=== PATIENT | male | born 1930 | race Caucasian/White ===

== ENCOUNTER 2017-02-22 20:57 | Observation (INO) | payer MEDICARE, BC ==
[2017-02-22 21:43] LABS: BASOPHIL % 0.2 % (0.0-0.4); Eosinophil % 1.3 % (0.00-5.0); Granulocytes % 77.2 % (36.0-66.0); Lymphocytes % 12.8 % (24.0-44.0); Mean Cell Volume 98.7 fl (78-100); Mean Platelet Volume 9.9 fl (6-9.5); Monocytes % 8.5 % (0.0-12.0); Platelet Count 199 K/mm3 (150-450); Red Blood Count 3.77 M/mm3 (4.1-5.6); Red Cell Distribution Width 15.1 % (11.5-14.0); White Blood Count 8.5 K/mm3 (4.0-10.5)
--- NOTE | 2017-02-22 21:50 | ERPHSYRPT ---
- History of Present Illness Time Seen by Provider: 02/22/17 21:23 Source: patient, family ( and son) Patient Subjective Stated Complaint: Pt arrives from home with approx 15-20 min onset of generalized weakness and episode of diaphoresis. Pt sts that he just feels tired, like he wants to go to bed. Denies other complaints. Triage Nursing Assessment: Pt alert, oriented, answers questions appropriately. Skin pink, warm to touch, moist. Pt able to transfer self from wheelchair to bed. Resps non-labored. Physician History: CC: weakness Hx: 86 y/o patient of Dr Mendieta. He has felt off for 2 weeks. Today was doing ok. He went to eat [place] this evening. He got home and felt weak all over, was dripping in sweat and diaphoretic. No chest pain, headache, focal weakness, fever, chills. He was overwhelmingly tired. Family brought him to ER. He denies V/D. Normal urination. No abd pain. No chest pain. Son states he acts cantankerous when under stress and has even been kicked out of the eye doctor office. He had skin lesion removed this week from his chest and the incision has done well. Timing/Duration: today Severity: moderate Allergies/Adverse Reactions: No Known Drug Allergies Allergy (Verified 04/29/14 19:17) Home Medications: Amiodarone HCl [Pacerone] 200 mg PO DAILY 04/29/14 [History] Ascorbic Acid [Vitamin C] 250 mg PO BID 04/29/14 [History] Aspirin 81 mg PO DAILY 04/29/14 [History] Bupropion HCl 150 mg Sr [Wellbutrin SR 150 MG] 150 mg PO BID 04/29/14 [ History] Cyanocobalamin/Folic Acid [Vitamin G37-Ebwcb Acid Tablet] 1 tab PO DAILY [History] Diazepam 2 mg PO TID 04/29/14 [History] Diazepam 2 mg PO TIDPRN PRN 04/29/14 [History] Docusate Sodium 100 mg [Colace 100 MG] 100 mg PO BID 04/29/14 [History] Donepezil HCl 10 mg [Aricept 10 MG] 10 mg PO HS 04/29/14 [History] Fluticasone Propionate [Flonase NASAL] 1 spray NS DAILY 04/29/14 [History] Fluticasone/Salmeterol [Advair 250-50 Diskus] 1 puff IH BID 04/29/14 [History] Hydrocodone Bit/Acetaminophen [[place] 5-325 Tablet] 1 each PO Q4HPRN 04/29/14 [ History] Ipratropium/Albuterol Sulfate [Combivent Inhaler] 15 gm IH QID 04/29/14 [History ] Lorazepam 0.5 mg [Ativan 0.5 MG] 0.5 mg PO TID 04/29/14 [History] Memantine HCl [Namenda] 10 mg PO BID 04/29/14 [History] Multivitamin [Multi-Vitamin Daily] 1 each PO DAILY 04/29/14 [History] Omeprazole 20 MG [Prilosec 20 mg] 20 mg PO DAILY 04/29/14 [History] Polyethylene Glycol 3350 17 gm [Miralax Powder 17GM PACKET] 17 gm PO DAILY [History] Pravastatin Sodium [Pravachol] 20 mg PO HS 04/29/14 [History] Timolol Maleate 0.5% Eye [Timoptic 0.5% 5 ml Ophthalmic] 1 drops OP HS 08/08 [History] Ubidecar/Fish Oil/[place]-3/Dana [Coq-10 & Fish Oil Softgel] 1 each PO DAILY 04/29 [History] Venlafaxine HCl ER 75 mg [Effexor XR 75 MG] 75 mg PO DAILY 04/29/14 [ History] Hx Tetanus, Diphtheria Vaccination/Date Given: Yes Hx Influenza Vaccination/Date Given: Yes Hx Pneumococcal Vaccination/Date Given: No Immunizations Up to Date: Yes - Review of Systems Constitutional: Fatigue, Malaise, Weakness (general), No Fever, No Chills Eyes: No Symptoms Ears, Nose, & Throat: No Symptoms Respiratory: No Cough, No Dyspnea Cardiac: No Chest Pain, No Palpitations, No Syncope Abdominal/Gastrointestinal: No Abdominal Pain, No Nausea, No Vomiting, No Diarrhea Musculoskeletal: No Back Pain, No Neck Pain, No Fall, No Injury Skin: No Rash Neurological: No Focal Weakness, No Headache, No Parasthesia All Other Systems: Reviewed and Negative - Past Medical History Pertinent Past Medical History: Yes Neurological History: Dementia Cardiac History: Arrhythmia, Coronary Artery Disease, Myocardial Infarction ([place]) Respiratory History: COPD GI Medical History: Other - Past Surgical History Past Surgical History: Yes Other Surgical History: HERNIA REPAIR - Social History Smoking Status: Former smoker Exposure to second hand smoke: No Drug Use: none Patient Lives Alone: No (here with family) - Nursing Vital Signs Nursing Vital Signs: Initial Vital Signs Pulse Rate 63 02/22/17 21:13 Respiratory Rate 18 02/22/17 21:13 Blood Pressure 105/50 02/22/17 21:13 O2 Sat by Pulse Oximetry 95 02/22/17 21:13 Pain Scale Pain Intensity 0 - Physical Exam General Appearance: alert Eye Exam: PERRL/EOMI Ears, Nose, Throat Exam: normal ENT inspection, moist mucous membranes Neck Exam: normal inspection, non-tender, supple Respiratory Exam: normal breath sounds Cardiovascular Exam: regular rate/rhythm Gastrointestinal/Abdomen Exam: soft, No tenderness, No distention Male Genitalia Exam: normal genitalia Back Exam: normal inspection, normal range of motion Extremity Exam: normal inspection, normal range of motion Neurologic Exam: alert, oriented x 3, cooperative, services executive II-XII nml as tested, sensation nml, No motor deficits Skin Exam: warm, dry, No rash SpO2 Interpretation: normal SpO2: 95 Oxygen Delivery: Room Air - Course Nursing assessment & vital signs reviewed: Yes EKG Interpreted by Me: RATE (64), A-fib, NORMAL AXIS, NORMAL INTERVALS (QTc 450) , NORMAL ST-T - Radiology Exams cxr X-ray Interpretation: Reviewed by me (No mass, ?right effusion, emphysema) - CT Exams head CT Interpretation: Tele-radiologist Report (no acute, pronounced volume loss, chronic white matter disease. ), No/Intracranial Hemorrhag Ordered Tests: Active Orders 24 hr Category Date Time Status Accucheck STAT Care 02/22/17 23:27 Active Clean Catch Urine Specimen STAT Care 02/22/17 21:23 Active EKG-ER Only STAT Care 02/22/17 21:23 Active IV Insertion STAT Care 02/22/17 21:23 Active Rectal Temperature STAT Care 02/22/17 21:25 Active cath [Cath for Specimen-Straight] STAT Care 02/22/17 23:49 Active CHEST 1 VIEW (PORTABLE) Stat Exams 02/22/17 21:23 Taken HEAD WITHOUT CONTRAST [CT] Stat Exams 02/22/17 21:24 Taken CBC W DIFF Stat Lab 02/22/17 21:40 Completed CMP Stat Lab 02/22/17 21:40 Completed Lactic Acid Stat Lab 02/22/17 21:38 Completed PROTIME WITH INR Stat Lab 02/22/17 21:50 Completed PTT Stat Lab 02/22/17 21:50 Completed TROPONIN Q3H Lab 02/22/17 21:40 Completed TROPONIN Q3H Lab 02/23/17 00:30 Ordered TROPONIN Q3H Lab 02/23/17 03:30 Ordered TROPONIN Q3H Lab 02/23/17 06:30 Ordered TROPONIN Q3H Lab 02/23/17 09:30 Ordered TSH [TSH, 3RD Generation] Stat Lab 02/22/17 21:40 Completed UA W/RFX UR CULTURE Stat Lab 02/22/17 23:47 Completed Medication Summary Discontinued Medications Generic Name Dose Route Start Last Admin Trade Name Freq PRN Reason Stop Dose Admin Diphtheria/Tetanus/Acell Pertussis Confirm 02/22/17 22:26 Adacel Vial Administered 02/22/17 22:27 Dose 0.5 ml IM .STmobiTeris-MED ONE Lab/Rad Data: Laboratory Result Diagrams 02/22/17 21:40 02/22/17 21:40 Laboratory Results 02/22/17 02/22/17 02/22/17 Range/Units 23:47 21:50 21:40 WBC 8.5 (4.0-10.5) K/mm3 RBC 3.77 L (4.1-5.6) M/mm3 Hgb 11.7 L (12.5-18.0) gm/dl Hct 37.2 L (42-50) % MCV 98.7 (78-100) fl MCH 31.0 (26-32) pg MCHC 31.5 L (32-36) g/dl RDW 15.1 H (11.5-14.0) % Plt Count 199 (150-450) K/mm3 MPV 9.9 H (6-9.5) fl Gran % 77.2 H (36.0-66.0) % Lymphocytes % 12.8 L (24.0-44.0) % Monocytes % 8.5 (0.0-12.0) % Eosinophils % 1.3 (0.00-5.0) % Basophils % 0.2 (0.0-0.4) % Basophils # 0.02 (0-0.4) INR 0.99 (0.8-3.0) APTT 36.1 (24.1-36.1) SECONDS Sodium (136-145) mEq/L Potassium (3.5-5.1) mEq/L Chloride (98-107) mEq/L Carbon Dioxide (21-32) mEq/L Anion Gap (5-15) MEQ/L BUN (9-20) mg/dL Creatinine (0.55-1.30) mg/dl Estimated GFR ML/MIN Glucose (70-110) MG/DL Lactic Acid (0.4-2.0) Calcium (8.5-10.1) mg/dL Total Bilirubin (0.2-1.0) mg/dL AST (15-37) U/L ALT (12-78) U/L Alkaline Phosphatase (46-116) U/L Troponin I (0.000-0.056) ng/ml Serum Total Protein (6.4-8.2) gm/dL Albumin (3.4-5.0) g/dL TSH 3rd Generation (0.358-3.740) mIU/L Ur Collection Type CLEAN CATCH Urine Color YELLOW (YELLOW) Urine Appearance CLEAR (CLEAR) Urine pH 5.0 (5-6) Ur Specific [place] 1.020 (1.005-1.025) Urine Protein NEGATIVE (Negative) Urine Ketones NEGATIVE (NEGATIVE) Urine Blood NEGATIVE (0-5) Mario/ul Urine Nitrite NEGATIVE (NEGATIVE) Urine Bilirubin NEGATIVE (NEGATIVE) Urine Urobilinogen NORMAL (0-1) mg/dL Ur Leukocyte Esterase NEGATIVE (NEGATIVE) Urine Culture Reflexed NO (NO) Urine Glucose NEGATIVE (NEGATIVE) mg/dL Specimen Received [id number] 02/22/17 02/22/17 02/22/17 Range/Units 21:40 21:40 21:40 WBC (4.0-10.5) K/mm3 RBC (4.1-5.6) M/mm3 Hgb (12.5-18.0) gm/dl Hct (42-50) % MCV (78-100) fl MCH (26-32) pg MCHC (32-36) g/dl RDW (11.5-14.0) % Plt Count (150-450) K/mm3 MPV (6-9.5) fl Gran % (36.0-66.0) % Lymphocytes % (24.0-44.0) % Monocytes % (0.0-12.0) % Eosinophils % (0.00-5.0) % Basophils % (0.0-0.4) % Basophils # (0-0.4) INR (0.8-3.0) APTT (24.1-36.1) SECONDS Sodium 144 (136-145) mEq/L Potassium 4.1 (3.5-5.1) mEq/L Chloride 107 (98-107) mEq/L Carbon Dioxide 27.0 (21-32) mEq/L Anion Gap 14.0 (5-15) MEQ/L BUN 14 (9-20) mg/dL Creatinine 1.11 (0.55-1.30) mg/dl Estimated GFR > 60 ML/MIN Glucose 68 L (70-110) MG/DL Lactic Acid (0.4-2.0) Calcium 9.1 (8.5-10.1) mg/dL Total Bilirubin 0.30 (0.2-1.0) mg/dL AST 15 (15-37) U/L ALT 14 (12-78) U/L Alkaline Phosphatase 60 (46-116) U/L Troponin I < 0.017 (0.000-0.056) ng/ml Serum Total Protein 6.3 L (6.4-8.2) gm/dL Albumin 3.7 (3.4-5.0) g/dL TSH 3rd Generation 0.698 (0.358-3.740) mIU/L Ur Collection Type Urine Color (YELLOW) Urine Appearance (CLEAR) Urine pH (5-6) Ur Specific [place] (1.005-1.025) Urine Protein (Negative) Urine Ketones (NEGATIVE) Urine Blood (0-5) Mario/ul Urine Nitrite (NEGATIVE) Urine Bilirubin (NEGATIVE) Urine Urobilinogen (0-1) mg/dL Ur Leukocyte Esterase (NEGATIVE) Urine Culture Reflexed (NO) Urine Glucose (NEGATIVE) mg/dL Specimen Received 02/22/17 Range/Units 21:38 WBC (4.0-10.5) K/mm3 RBC (4.1-5.6) M/mm3 Hgb (12.5-18.0) gm/dl Hct (42-50) % MCV (78-100) fl MCH (26-32) pg MCHC (32-36) g/dl RDW (11.5-14.0) % Plt Count (150-450) K/mm3 MPV (6-9.5) fl Gran % (36.0-66.0) % Lymphocytes % (24.0-44.0) % Monocytes % (0.0-12.0) % Eosinophils % (0.00-5.0) % Basophils % (0.0-0.4) % Basophils # (0-0.4) INR (0.8-3.0) APTT (24.1-36.1) SECONDS Sodium (136-145) mEq/L Potassium (3.5-5.1) mEq/L Chloride (98-107) mEq/L Carbon Dioxide (21-32) mEq/L Anion Gap (5-15) MEQ/L BUN (9-20) mg/dL Creatinine (0.55-1.30) mg/dl Estimated GFR ML/MIN Glucose (70-110) MG/DL Lactic Acid 1.6 (0.4-2.0) Calcium (8.5-10.1) mg/dL Total Bilirubin (0.2-1.0) mg/dL AST (15-37) U/L ALT (12-78) U/L Alkaline Phosphatase (46-116) U/L Troponin I (0.000-0.056) ng/ml Serum Total Protein (6.4-8.2) gm/dL Albumin (3.4-5.0) g/dL TSH 3rd Generation (0.358-3.740) mIU/L Ur Collection Type Urine Color (YELLOW) Urine Appearance (CLEAR) Urine pH (5-6) Ur Specific [place] (1.005-1.025) Urine Protein (Negative) Urine Ketones (NEGATIVE) Urine Blood (0-5) Mario/ul Urine Nitrite (NEGATIVE) Urine Bilirubin (NEGATIVE) Urine Urobilinogen (0-1) mg/dL Ur Leukocyte Esterase (NEGATIVE) Urine Culture Reflexed (NO) Urine Glucose (NEGATIVE) mg/dL Specimen Received - Progress Progress Note: 02/23/17 00:14 Pt generally very weak. Unable to stand to urinate without assistance. No focal weakness. Sugar some low. Snacks given. Will recheck. Pt and family do not know his meds. CAlled Dr Mendieta who will admit for obs. 02/23/17 00:15 Has chronic afib. Unsure of meds. Took full asa [employer]. Counseled pt/family regarding: lab results, diagnosis, need for follow-up, rad results - Departure Time of Disposition: 00:14 Departure Disposition: Observation Clinical Impression: Generalized weakness, Hypoglycemia, Chronic atrial fibrillation Condition: Fair Critical Care Time: No Referrals: MARY MENDIETA MD [Primary Care Provider] -
[2017-02-22 22:02] LABS: INR 0.99 (0.8-3.0)
[2017-02-22 22:04] LABS: PTT 36.1 SECONDS (24.1-36.1)
[2017-02-22 22:11] LABS: ALBUMIN 3.7 g/dL (3.4-5.0); ALKALINE PHOSPHATASE 60 U/L (46-116); BLOOD UREA NITROGEN 14 mg/dL (9-20); CHLORIDE 107 mEq/L (98-107); Glucose 68 MG/DL (70-110); Potassium 4.1 mEq/L (3.5-5.1); SGOT/AST 15 U/L (15-37); SGPT/ALT 14 U/L (12-78); SODIUM 144 mEq/L (136-145); Total Protein 6.3 gm/dL (6.4-8.2)
[2017-02-22] MEDS ORDERED: Adacel Vial IM ONE (22:26)
[2017-02-22 23:59] LABS: ADD URINE CULTURE? NO (NO); Bilirubin NEGATIVE (NEGATIVE); Blood NEGATIVE Ery/ul (0-5); COMPLETE URINE MICROSCOPIC? NO; Collection Type CLEAN CATCH; Glucose NEGATIVE (NEGATIVE); Leukocyte Esterase NEGATIVE (NEGATIVE)
[2017-02-23] MEDS ORDERED: NovoLOG Insulin SQ PRN (01:31)
--- NOTE | 2017-02-23 08:56 | XRAY ---
Indication: Weakness. Diaphoresis. Multiple contiguous axial images obtained through the head without contrast. Comparison: August 25, 2008. Bilateral external hearing aids produces beam artifact. There remains age-appropriate global atrophy with progressive worsening mild periventricular degenerative micro-ischemia bilaterally. There is now right external capsule remote lacunar infarct. No acute intracranial hemorrhage, abnormal extra axial fluid collection, or mass effect. Fourth ventricle is midline without hydrocephalus. Bony calvarium intact. Visualized paranasal sinuses and mastoid air cells clear. Impression: Right external capsule remote lacunar infarct. Otherwise nonacute senile brain. Comment: Preliminary interpretation was made by [facility]. No discrepancy. CT DI 69.38
--- NOTE | 2017-02-23 09:00 | XRAY ---
Indication: Generalized weakness. Comparison: July 25, 2014. Portable chest now demonstrates blunting of the right costophrenic angle, either pleural effusion versus pleural thickening. Stable right mid lung fibrosis/scarring. Remaining heart and lungs unremarkable. Bony thorax intact again with osteopenia and degenerative changes.
[2017-02-23 11:48] VITALS: BP 98/53; PULSE 66; O2SAT 98
--- NOTE | 2017-02-23 13:02 | PCM.SSS ---
History of Present Illness - Chief Complaint Chief Complaint: weakness, hypoglycemia History of Present Illness: is a 86 year old male. 86 y/o patient has felt off for 2 weeks. Today was doing ok. He went to eat [place] this evening. He got home and felt weak all over, was dripping in sweat and diaphoretic. No chest pain, headache, focal weakness, fever, chills. He was overwhelmingly tired. Family brought him to ER. He denies V/D. Normal urination. No abd pain. No chest pain. Son states he acts cantankerous when under stress and has even been kicked out of the eye doctor office. He had skin lesion removed this week from his chest and the incision has done well. - Review of Systems Constitutional: No Fever, No Chills Eyes: No Symptoms Ears, Nose, & Throat: No Symptoms Respiratory: No Cough, No Short Of Breath Cardiac: No Chest Pain, No Edema, No Syncope Abdominal/Gastrointestinal: No Abdominal Pain, No Nausea, No Vomiting, No Diarrhea Genitourinary Symptoms: No Dysuria Musculoskeletal: No Back Pain, No Neck Pain Skin: No Rash Neurological: No Dizziness, No Focal Weakness, No Sensory Changes Psychological: No Symptoms Endocrine: No Symptoms Hematologic/Lymphatic: No Symptoms Immunological/Allergic: No Symptoms Medications & Allergies Home Medications: Home Medication List Aspirin 81 gm Chew [Baby Aspirin 81 mg Chew] 81 mg PO DAILY 02/23/17 [ History Confirmed 02/23/17] Bupropion HCl 75 mg PO HS 02/23/17 [History Confirmed 02/23/17] Bupropion HCl [Bupropion HCl ER] 200 mg PO QAM 02/23/17 [History Confirmed 02/23] Donepezil HCl 10 mg [Aricept 10 MG] 10 mg PO HS 02/23/17 [History Confirmed 02/23/17] Escitalopram Oxalate [Lexapro] 20 mg PO DAILY 02/23/17 [History Confirmed ] Famotidine [Pepcid] 40 mg PO BID 02/23/17 [History Confirmed 02/23/17] Ferrous Sulfate 5 ml PO DAILY 02/23/17 [History Confirmed 02/23/17] Fluticasone Furoate [Flonase Sensimist] 9.1 ml NS DAILY 02/23/17 [History Confirmed 02/23/17] Fluticasone/Salmeterol Disc [Advair 250-50 Diskus 14 Dose] 1 each IH Q12H 02/23/17 [History Confirmed 02/23/17] Ipratropium/Albuterol Sulfate [Combivent Inhaler] 14.7 gm IH Q12H 02/23/17 [ History Confirmed 02/23/17] Memantine HCl/Donepezil HCl [Namzaric 28 mg-10 mg Capsule] 1 each PO DAILY 02/23 [History Confirmed 02/23/17] Metformin HCl 500 mg [Glucophage 500 MG] 500 mg PO BIDWM 02/23/17 [ History Confirmed 02/23/17] Mupirocin 22 gm TP BID 02/23/17 [History Confirmed 02/23/17] Timolol [Betimol] 2 drops OP BID 02/23/17 [History Confirmed 02/23/17] Allergies/Adverse Reactions: Allergies Allergy/AdvReac Type Severity Reaction Status Date / Time No Known Drug Allergies Allergy Verified 02/23/17 01:37 - Past Medical History Past Medical History: Yes Neurological History: Dementia ENT History: No Pertinent History Cardiac History: Arrhythmia, Coronary Artery Disease, Myocardial Infarction ([place]) Respiratory History: COPD Endocrine Medical History: No Pertinent History Musculoskelatal History: No Pertinent History GI Medical History: Other History: No Pertinent History Pyscho-Social History: No Pertinent History Male Reproductive Disorders: No 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 - Past Surgical History Past Surgical History: Yes Neuro Surgical History: No Pertinent History Cardiac History: Cardiac Stent Respiratory Surgery: No Pertinent History GI Surgical History: No Pertinent History Genitourinary Surgical Hx: No Pertinent History Musculskeletal Surgical Hx: Joint Replacement Male Surgical History: No Pertinent History Other Surgical History: HERNIA REPAIR, 3 stents, "only has half a stomach", L knee replacement - Social History Smoking Status: Former smoker Exposure to second hand smoke: No Alcohol: None Drug Use: none - Physical Exam Vital Signs: Vital Signs - 24 hr Temp Pulse Resp BP Pulse Ox 02/23/17 11:47 98.4 F 66 18 98/53 98 02/23/17 07:24 98.1 F 61 18 116/64 97 02/23/17 04:00 97.5 F 65 18 120/61 92 L 02/23/17 01:55 97.6 F 64 18 117/55 91 L 02/23/17 00:15 95 02/22/17 23:49 70 18 93/60 97 02/22/17 22:40 72 16 87/47 97 02/22/17 21:29 96.6 F 02/22/17 21:13 63 18 105/50 95 General Appearance: no apparent distress, alert Neurologic Exam: alert, oriented x 3, cooperative, normal mood/affect, nml cerebellar function, nml station & gait, sensation nml, No motor deficits Eye Exam: PERRL/EOMI, eyes nml inspection Ears, Nose, Throat Exam: normal ENT inspection, TMs normal, pharynx normal, moist mucous membranes Neck Exam: normal inspection, non-tender, supple, full range of motion Respiratory Exam: normal breath sounds, lungs clear, No respiratory distress Cardiovascular Exam: regular rate/rhythm, normal heart sounds, normal peripheral pulses Gastrointestinal/Abdomen Exam: soft, normal bowel sounds, No tenderness, No mass Back Exam: normal inspection, normal range of motion, No CVA tenderness, No vertebral tenderness Extremity Exam: normal inspection, normal range of motion, pelvis stable Skin Exam: normal color, warm, dry, No rash Lymphatic Exam: No adenopathy Results - Labs Lab/Micro Results: Accuchecks Date 02/23/17 Date 02/23/17 Time 07:30 Time 04:00 Accucheck Value: 77 Accucheck Value: 96 Lab Results-Last 24 Hours 02/23/17 02/23/17 02/23/17 Range/Units 03:40 06:33 09:30 Troponin I < 0.017 < 0.017 < 0.017 (0.000-0.056) ng/ml Accuchecks Date 02/23/17 Date 02/23/17 Time 07:30 Time 04:00 Accucheck Value: 77 Accucheck Value: 96 Assessment/Plan (1) Hypoglycemia Current Visit: Yes Status: Resolved Code(s): E16.2 - HYPOGLYCEMIA, UNSPECIFIED (2) Chronic atrial fibrillation Current Visit: Yes Status: Chronic Code(s): I48.2 - CHRONIC ATRIAL FIBRILLATION (3) Generalized weakness Current Visit: Yes Status: Acute Code(s): R53.1 - WEAKNESS Hospital Summary - Vitals & Intake/Output Vital Signs: Vital Signs Temperature 98.4 F 02/23/17 11:47 Pulse Rate 66 02/23/17 11:47 Respiratory Rate 18 02/23/17 11:47 Blood Pressure 98/53 02/23/17 11:47 O2 Sat by Pulse Oximetry 98 02/23/17 11:47 Intake & Output: Intake & Output 02/21/17 02/22/17 02/23/17 02/24/17 11:59 11:59 11:59 11:59 Intake Total 100 Balance 100 Weight 79.56 kg - Lab Result Diagrams: 02/22/17 21:40 02/22/17 21:40 Lab Results-Last 24 Hrs: Accuchecks Date 02/23/17 Date 02/23/17 Time 07:30 Time 04:00 Accucheck Value: 77 Accucheck Value: 96 Lab Results-Last 24 Hours 02/23/17 02/23/17 02/23/17 Range/Units 03:40 06:33 09:30 Troponin I < 0.017 < 0.017 < 0.017 (0.000-0.056) ng/ml Micro Results-Entire Visit: Accuchecks Date 02/23/17 Date 02/23/17 Time 07:30 Time 04:00 Accucheck Value: 77 Accucheck Value: 96 - Discharge Disposition: Home, Self-Care Condition: Fair Prescriptions: No Action Famotidine [Pepcid] 40 mg PO BID Bupropion HCl 75 mg PO HS Bupropion HCl [Bupropion HCl ER] 200 mg PO QAM Escitalopram Oxalate [Lexapro] 20 mg PO DAILY Donepezil HCl 10 mg [Aricept 10 MG] 10 mg PO HS Timolol [Betimol] 2 drops OP BID Aspirin 81 gm Chew [Baby Aspirin 81 mg Chew] 81 mg PO DAILY Fluticasone Furoate [Flonase Sensimist] 9.1 ml NS DAILY Ferrous Sulfate 5 ml PO DAILY Memantine HCl/Donepezil HCl [Namzaric 28 mg-10 mg Capsule] 1 each PO DAILY Ipratropium/Albuterol Sulfate [Combivent Inhaler] 14.7 gm IH Q12H Fluticasone/Salmeterol Disc [Advair 250-50 Diskus 14 Dose] 1 each IH Q12H Metformin HCl 500 mg [Glucophage 500 MG] 500 mg PO BIDWM Mupirocin 22 gm TP BID Follow up with: MARY MENDIETA MD [Primary Care Provider] -
[2017-02-23] MEDS ORDERED: ADVAIR 250-50 DISKUS 14 DOSE IH SCH (13:15)
[2017-02-23] MEDS ORDERED: NON-FORMULARY ITEM (Ipratropium/Albuterol Sulfate [Combivent Inhaler] 14.7 GM) IH SCH (13:15)
[2017-02-23] MEDS ORDERED: Wellbutrin SR 150 MG PO SCH (13:30)
[2017-02-23] MEDS ORDERED: Lexapro 10 MG PO SCH (13:30)
[2017-02-23] MEDS ORDERED: ECOTRIN 81 MG PO SCH (13:30)
[2017-02-23] MEDS ORDERED: MEDICATION INTERVENTION MC PRN (13:39)
[2017-02-23] MEDS ORDERED: Flonase NASAL NS SCH (13:45)
[2017-02-23] MEDS ORDERED: Glucophage 500 MG PO SCH (17:00)
[2017-02-23] MEDS ORDERED: DUONEB 0.5-3 MG/3 ml Neb IH SCH (19:00)
[2017-02-23] MEDS ORDERED: Advair Hfa 115/21 Common canister IH SCH (19:00)
[2017-02-23] MEDS ORDERED: Pepcid 20 MG PO SCH (22:00)
[2017-02-23] MEDS ORDERED: BUPROPION HCL PO SCH (22:00)
[2017-02-23] MEDS ORDERED: Bactroban OINTMENT TP SCH (22:00)
[2017-02-23] MEDS ORDERED: TIMOLOL OP SCH (22:00)
[2017-02-23] MEDS ORDERED: Aricept 10 MG PO SCH (22:00)
[2017-02-23] MEDS ORDERED: NON-FORMULARY ITEM (Famotidine [Pepcid] 40 MG) PO SCH (22:00)
[2017-02-24] MEDS ORDERED: FLUTICASONE FUROATE NS SCH (10:00)
[2017-02-24] MEDS ORDERED: FERROUS SULFATE PO SCH (10:00)
[2017-02-24] MEDS ORDERED: NON-FORMULARY ITEM (Escitalopram Oxalate [Lexapro] 20 MG) PO SCH (10:00)
[2017-02-24] MEDS ORDERED: BUPROPION HCL 200 MG PO SCH (10:00)
[2017-02-24] MEDS ORDERED: DONEPEZIL HCL PO SCH (10:00)
[2017-02-24] MEDS ORDERED: BABY ASPIRIN 81 MG CHEW PO SCH (10:00)
[2017-02-24] MEDS ORDERED: MEMANTINE HCL PO SCH (10:00)
[2017-02-24] MEDS ORDERED: FEOSOL 325 MG PO SCH (10:00)
== END 2017-02-23 14:45 | disposition home or self-care (01) ==
LOC: ED 20:57 → MED SURG 02-23 01:25
PROVIDERS: ADMIT General Practice; ATTEND General Practice
DX: E16.2 Hypoglycemia, unspecified (principal); I48.2 Chronic atrial fibrillation; R53.1 Weakness; Z79.4 Long term (current) use of insulin; Z79.899 Other long term (current) drug therapy; F03.90 Unspecified dementia, unspecified severity, without behavioral disturbance, psychotic disturbance, mood disturbance, and anxiety; I25.10 Atherosclerotic heart disease of native coronary artery without angina pectoris; I25.2 Old myocardial infarction; J44.9 Chronic obstructive pulmonary disease, unspecified; Z85.01 Personal history of malignant neoplasm of esophagus
CPT/HCPCS: 99285; 36000; 93005; 81002; 84443; 85610; 85730; 36415; 85025; 80053; 84484; 71010; 70450; 83605; P9612; 82962; 90471; 90715; 93268; G0378; A9270-GY